=== PATIENT | female | born 1950 | race Caucasian/White ===

== ENCOUNTER 2024-03-02 18:23 | Inpatient (IN) | payer MEDICARE, MEDICAID ==
[~2024-03-02] VITALS: Ht 157.5 cm; Wt 128.4 kg
[~2024-03-02 18:23] MED LIST: AMIO100T4 MT; APIX5TAB MT; ASPI-1497 MT; ATOR40TA70 MT; CHOLECALCIFEROL PO; DOCU-150 MT; FERR325T6 MT; FURO40TA5 MT; GABA-529 MT; HYDR-4001 MT; HYDR10TA34 MT; LACT10SO6 MT; LORA10CA MT; MELA5TAB19 PO; METH4TAB95 MT; NITR0.4T49 SL; OMEG-119 MT; PROT40 MT
[2024-03-02] MEDS ORDERED: NARCAN (18:30)
[2024-03-02 20:22] LABS: BASOPHILS % 0.8 % (0.0-2.0); EOSINOPHILS % 0.4 % (0.0-5.0); HEMATOCRIT. 40.1 % (36.0-48.0); HEMOGLOBIN. 12.8 g/dL (12.0-16.0); LYMPHOCYTES % 26.4 % (20.0-50.0); MEAN CORPUSCULAR HEMOGLOBIN 29.9 pg (28.0-32.0); MEAN CORPUSCULAR HGB CONC 31.8 g/dL (31.0-37.0); MEAN CORPUSCULAR VOLUME 93.9 fL (81.0-99.0); MEAN PLATELET VOLUME 7.8 fl (7.4-10.4); MONOCYTES % 8.1 % (2.0-8.0); NEUTROPHILS % 64.3 % (40.0-76.0); PLATELET 259 x1000/uL (130-400); RED BLOOD CELL COUNT 4.27 mill/uL (4.2-5.4); RED CELL DISTRIBUTION WIDTH 16.8 % (11.6-14.6); WHITE BLOOD COUNT 8.9 x1000/uL (4.5-11.0)
[2024-03-02 20:29] LABS: CHLORIDE 100 mEq/L (98-107); POTASSIUM 4.5 mEq/L (3.5-5.1); SODIUM 137 mEq/L (136-145)
[2024-03-02 20:30] LABS: CALCIUM 9.4 mg/dL (8.7-10.4); CARBON DIOXIDE 35 mEq/L (21-32)
[2024-03-02 20:35] LABS: CREATININE 0.8 mg/dL (0.6-1.0); GLUCOSE 110 mg/dL (70-105); TROPONIN I HIGH SENSITIVITY 6 ng/L (3.0-34); UREA NITROGEN BLOOD 13 mg/dL (9-23)
[2024-03-02 20:37] LABS: ALANINE AMINOTRANSFERASE 12 IU/L (10-49); ALBUMIN 4.3 g/dL (3.2-4.8); ASPARTATE AMINOTRANSFERASE 22 IU/L (<34); BILIRUBIN TOTAL 0.3 mg/dL (0.1-1.0); PROTEIN TOTAL 7.3 g/dL (6.0-8.3)
[2024-03-02 20:40] LABS: BILIRUBIN DIRECT < 0.1 mg/dL (<=3.0)
[2024-03-02 23:35] LABS: CLARITY URINE CLEAR (CLEAR); COLOR URINE YELLOW (YELLOW); GLUCOSE URINE NEGATIVE (NEGATIVE); KETONES URINE NEGATIVE (NEGATIVE); LEUKOCYTE ESTERASE URINE NEGATIVE (NEGATIVE); NITRITE URINE NEGATIVE (NEGATIVE); OCCULT BLOOD URINE 3+ (NEGATIVE); PROTEIN URINE TRACE (NEGATIVE); SPECIFIC GRAVITY URINE 1.018 (1.005-1.030); UROBILINOGEN URINE 0.2 E.U./dL (0.2-1.0)
[2024-03-02 23:53] LABS: PROTHROMBIN TIME 11.6 sec (9.6-11.0)
[2024-03-03 00:19] VITALS: PULSE 80; RESP 20; O2SAT 100
[2024-03-03] MEDS: ALBUTEROL (0.5%) 2.5MG/0.5ML NEB HHN ONE (00:19)
[2024-03-03] MEDS: IPRATROPIUM BROMIDE (0.02%) 0.5MG/2.5ML NEB HHN ONE (00:19)
[2024-03-03 00:57] LABS: WBC URINE NONE SEEN /hpf (0-2)
[2024-03-03 00:58] LABS: BACTERIA URINE TRACE; RBC URINE TNTC /hpf (0-2); SQUAMOUS EPITHELIAL CELL URINE 1+ /lpf (RARE/1+)
[2024-03-03 16:00] VITALS: BP 100/43; PULSE 72; TEMP 36.50292; O2SAT 95
[2024-03-03] MEDS ORDERED: ACETAMINOPHEN 325MG TABLET PO PRN (16:15)
[2024-03-03] MEDS ORDERED: ONDANSETRON HCL 4MG/2ML INJ IV PRN (16:15)
[2024-03-03] MEDS ORDERED: DOCUSATE SODIUM 100MG CAPSULE PO PRN (16:15)
[2024-03-03] MEDS ORDERED: IPRATROPIUM/ALBUTEROL 0.5-3(2.5)MG/3ML NEB HHN PRN (16:15)
[2024-03-03] MEDS: ACETAMINOPHEN 325MG TABLET PO PRN (17:00)
[2024-03-03 17:10] VITALS: BP 100/43; PULSE 72; RESP 18; TEMP 26.6324
[2024-03-03] MEDS ORDERED: HYDR-4001 PO (17:51)
[2024-03-03 18:48] LABS: BG BASE EXCESS 5.6 mmol/L (-2.0-3.0); BG CARBOXYHEMOGLOBIN 0.4 % (0.5-1.5); BG DEOXYHEMOGLOBIN 1.5 % (0.0-5.0); BG FRACTION INSPIRED OXYGEN 40; BG HCO3 ACT 32.9 mmol/L (21.0-28.0); BG METHEMOGLOBIN 0.3 % (0.5-1.5); BG OXYGEN SATURATION 98.5 % (94.0-98.0); BG OXYHEMOGLOBIN 97.8 % (94.0-98.0); BG PCO2 61.8 mmHg (32.0-45.0); BG PH 7.344 (7.350-7.450); BG SAMPLE SITE RIGHT RADIAL; BG TOTAL HEMOGLOBIN 11.6 g/dL (12.0-16.0); BG VENT MODE NASAL CANNULA
[2024-03-03 19:29] LABS: *AMPHETAMINES SCREEN URINE NEGATIVE (NEGATIVE); *BARBITURATES SCREEN URINE NEGATIVE (NEGATIVE); *BENZODIAZEPINES SCREEN URINE NEGATIVE (NEGATIVE); *COCAINE SCREEN URINE NEGATIVE (NEGATIVE); CANNABINOID URINE SCREEN NEGATIVE (NEGATIVE); ECSTASY MDMA SCREEN URINE NEGATIVE (NEGATIVE); METHADONE URINE SCREEN NEGATIVE (NEGATIVE); OPIATES URINE SCREEN PRESUMPTIVE POSITIVE (NEGATIVE); PHENCYCLIDINE URINE SCREEN NEGATIVE (NEGATIVE)
[2024-03-03 20:00] VITALS: BP 97/61; PULSE 85; TEMP 37.2252; O2SAT 98
[2024-03-04] VITALS (14 sets, daily range): BP systolic 92–206; BP diastolic 50–174; PULSE 54–75; RESP 10–19; TEMP 36.44736–36.89184; O2SAT 92–100
[2024-03-04] MEDS: HYDROCODONE/ACETAMINOPHEN 5/325MG TABLET PO PRN (03:28)
[2024-03-04] MEDS: HYDROXYZINE 10MG TABLET PO PRN (03:28)
[2024-03-04 03:53] LABS: BG BASE EXCESS 10.1 mmol/L (-2.0-3.0); BG CARBOXYHEMOGLOBIN 0.7 % (0.5-1.5); BG FRACTION INSPIRED OXYGEN 40; BG HCO3 ACT 37.5 mmol/L (21.0-28.0); BG OXYHEMOGLOBIN 97.3 % (94.0-98.0); BG PH 7.372 (7.350-7.450); BG PO2 111.8 mmHg (83.0-108.0); BG SAMPLE SITE LEFT RADIAL; BG TOTAL HEMOGLOBIN 11.2 g/dL (12.0-16.0); BG VENT MODE NASAL CANNULA
[2024-03-04 06:33] LABS: BASOPHILS % 0.5 % (0.0-2.0); EOSINOPHILS % 0.7 % (0.0-5.0); HEMATOCRIT. 33.2 % (36.0-48.0); HEMOGLOBIN. 10.4 g/dL (12.0-16.0); LYMPHOCYTES % 20.6 % (20.0-50.0); MEAN CORPUSCULAR HEMOGLOBIN 29.5 pg (28.0-32.0); MEAN CORPUSCULAR HGB CONC 31.4 g/dL (31.0-37.0); MEAN CORPUSCULAR VOLUME 94.1 fL (81.0-99.0); MONOCYTES % 6.9 % (2.0-8.0); NEUTROPHILS % 71.3 % (40.0-76.0); PLATELET 236 x1000/uL (130-400); RED BLOOD CELL COUNT 3.53 mill/uL (4.2-5.4); RED CELL DISTRIBUTION WIDTH 16.4 % (11.6-14.6); WHITE BLOOD COUNT 6.9 x1000/uL (4.5-11.0)
[2024-03-04 06:47] LABS: CARBON DIOXIDE 32 mEq/L (21-32); CHLORIDE 101 mEq/L (98-107); SODIUM 139 mEq/L (136-145)
[2024-03-04 06:49] LABS: CALCIUM 9.1 mg/dL (8.7-10.4)
[2024-03-04 06:53] LABS: CREATININE 0.7 mg/dL (0.6-1.0); GLUCOSE 118 mg/dL (70-105); UREA NITROGEN BLOOD 13 mg/dL (9-23)
[2024-03-04] MEDS: DEXAMETHASONE 4MG/ML 1ML VIAL IV NR (07:06)
[2024-03-04] MEDS: LEVETIRACETAM 500MG TABLET PO SCH (08:32)
[2024-03-04] MEDS ORDERED: CEFTRIAXONE 500 MG in DEXTROSE 5% WATER 50 ML IV SCH (16:30)
[2024-03-04] MEDS: CLOTRIMAZOLE 1% VAGINAL CREAM 45GM VG SCH (18:00)
[2024-03-04] MEDS: CEFEPIME 2GM/100ML 100 ML IV SCH (18:00)
[2024-03-04] MEDS: AZITHROMYCIN 500MG/250ML 250 ML IV SCH (18:01)
[2024-03-04] MEDS: CLONIDINE 0.1MG TABLET PO PRN (22:04)
[2024-03-05] VITALS (11 sets, daily range): BP systolic 94–167; BP diastolic 49–134; PULSE 47–73; RESP 11–22; TEMP 36.28068–36.72516; O2SAT 91–100
[2024-03-05] MEDS: BUDESONIDE 0.5MG/2ML NEB HHN SCH (00:01)
[2024-03-05 06:57] LABS: BASOPHILS % 0.8 % (0.0-2.0); HEMATOCRIT. 33.5 % (36.0-48.0); HEMOGLOBIN. 10.5 g/dL (12.0-16.0); LYMPHOCYTES % 12.1 % (20.0-50.0); MEAN CORPUSCULAR HEMOGLOBIN 29.1 pg (28.0-32.0); MEAN CORPUSCULAR HGB CONC 31.5 g/dL (31.0-37.0); MEAN CORPUSCULAR VOLUME 92.5 fL (81.0-99.0); NEUTROPHILS % 84.1 % (40.0-76.0); RED BLOOD CELL COUNT 3.62 mill/uL (4.2-5.4); RED CELL DISTRIBUTION WIDTH 16.3 % (11.6-14.6)
[2024-03-05 06:59] LABS: CARBON DIOXIDE 31 mEq/L (21-32); CHLORIDE 102 mEq/L (98-107); POTASSIUM 4.8 mEq/L (3.5-5.1); SODIUM 137 mEq/L (136-145)
[2024-03-05 07:03] LABS: DIFFERENTIAL COMMENT 1
[2024-03-05 07:05] LABS: CREATININE 0.7 mg/dL (0.6-1.0); GLUCOSE 145 mg/dL (70-105); UREA NITROGEN BLOOD 15 mg/dL (9-23)
[2024-03-05 12:04] LABS: PLATELET 193 x1000/uL (130-400)
[2024-03-05 13:40] LABS: BG BASE EXCESS 8.7 mmol/L (-2.0-3.0); BG CARBOXYHEMOGLOBIN 0.3 % (0.5-1.5); BG DEOXYHEMOGLOBIN 7.4 % (0.0-5.0); BG FRACTION INSPIRED OXYGEN 21; BG HCO3 ACT 35.2 mmol/L (21.0-28.0); BG METHEMOGLOBIN 0.3 % (0.5-1.5); BG OXYGEN SATURATION 92.6 % (94.0-98.0); BG PCO2 58.1 mmHg (32.0-45.0); BG PO2 62.8 mmHg (83.0-108.0); BG SAMPLE SITE RIGHT RADIAL; BG TOTAL HEMOGLOBIN 11.3 g/dL (12.0-16.0); BG VENT MODE ROOM AIR
[2024-03-05] MEDS ORDERED: PIPERACILLIN/TAZO 3.375G/50ML 50 ML IV SCH (14:00)
[2024-03-05] MEDS ORDERED: VANCOMYCIN 1,750 MG in DEXT 5% WATER 500 ML IV NR (15:00)
[2024-03-05] MEDS: METRONIDAZOLE 500 MG PREMIX 100 ML IV SCH (15:15)
[2024-03-05] MEDS: CEFEPIME 2GM/100ML 100 ML IV SCH (15:16)
[2024-03-06] VITALS (14 sets, daily range): BP systolic 88–142; BP diastolic 34–108; PULSE 59–83; RESP 12–20; TEMP 36.114–37.05852; O2SAT 91–100
[2024-03-06] MEDS ORDERED: VANCOMYCIN 1GM/200ML PMX (BAXTER) IV SCH (14:00)
[2024-03-07] VITALS (12 sets, daily range): BP systolic 92–150; BP diastolic 50–115; PULSE 67–101; RESP 13–24; TEMP 36.33624–37.2252; O2SAT 95–100
[2024-03-07] MEDS: ASCORBIC ACID 250 MG TABLET PO SCH (09:11)
[2024-03-07] MEDS: ZINC SULFATE 220 MG ( 50 ) CAPSULE PO SCH (09:11)
[2024-03-07] MEDS: MORPHINE SULFATE 2 MG/ML INJ (NOT FOR IM USE) IV NR (12:55)
[2024-03-07] MEDS: DIPHENHYDRAMINE 50MG/ML VIAL IV NR (13:21)
[2024-03-07] MEDS ORDERED: NALOXONE HCL 0.4MG/ML VIAL IV PRN (13:30)
[2024-03-07] MEDS: GABAPENTIN 300MG CAPSULE PO SCH (13:30)
[2024-03-08] VITALS (13 sets, daily range): BP systolic 92–151; BP diastolic 40–139; PULSE 76–94; RESP 12–18; TEMP 36.55848–36.9474; O2SAT 96–100
[2024-03-08 11:28] LABS: HEMOGLOBIN 9.3 g/dL (12.0-16.0); MEAN CORPUSCULAR HEMOGLOBIN 29.3 pg (28.0-32.0); MEAN CORPUSCULAR VOLUME 94.6 fL (81.0-99.0); PLATELET 260 x1000/uL (130-400); RED BLOOD CELL COUNT 3.17 mill/uL (4.2-5.4)
[2024-03-08 11:42] LABS: CALCIUM 8.8 mg/dL (8.7-10.4); CARBON DIOXIDE 32 mEq/L (21-32); CHLORIDE 105 mEq/L (98-107); POTASSIUM 4.7 mEq/L (3.5-5.1); SODIUM 138 mEq/L (136-145)
[2024-03-08 11:47] LABS: CREATININE 0.7 mg/dL (0.6-1.0); GLUCOSE 186 mg/dL (70-105); UREA NITROGEN BLOOD 23 mg/dL (9-23)
[2024-03-08] MEDS ORDERED: KEPP500 PO (12:54)
[2024-03-09] MEDS ORDERED: METRONIDAZOLE 500MG TABLET PO SCH (06:00)
== END 2024-03-08 23:46 | DRG 100 ==
LOC: ER 18:23 → MICUSO 23:50 → 5WST 03-03 09:56 → 8WST 03-03 16:20 → 5EST 03-04 00:30
PROVIDERS: ADMIT Family Medicine Adult Medicine; ATTEND Family Medicine Adult Medicine
PROC: 5A09357 Assistance with Respiratory Ventilation, Less than 24 Consecutive Hours, Continuous Positive Airway Pressure (ICD-10-PCS; principal; 2024-03-04)
PROC: 5A09357 Assistance with Respiratory Ventilation, Less than 24 Consecutive Hours, Continuous Positive Airway Pressure (ICD-10-PCS; 2024-03-05)
DX: G40.909 Epilepsy, unspecified, not intractable, without status epilepticus (principal); A41.9 Sepsis, unspecified organism; J96.02 Acute respiratory failure with hypercapnia; J96.01 Acute respiratory failure with hypoxia; J69.0 Pneumonitis due to inhalation of food and vomit; J44.0 Chronic obstructive pulmonary disease with (acute) lower respiratory infection; J44.1 Chronic obstructive pulmonary disease with (acute) exacerbation; E66.2 Morbid (severe) obesity with alveolar hypoventilation; D32.0 Benign neoplasm of cerebral meninges; Z68.38 Body mass index [BMI] 38.0-38.9, adult; B37.31 Acute candidiasis of vulva and vagina; I11.0 Hypertensive heart disease with heart failure; R90.82 White matter disease, unspecified; I50.9 Heart failure, unspecified; E11.9 Type 2 diabetes mellitus without complications; I48.91 Unspecified atrial fibrillation; K21.9 Gastro-esophageal reflux disease without esophagitis; Z88.8 Allergy status to other drugs, medicaments and biological substances; Z86.73 Personal history of transient ischemic attack (TIA), and cerebral infarction without residual deficits; Z88.0 Allergy status to penicillin; Z88.2 Allergy status to sulfonamides; Z88.6 Allergy status to analgesic agent; Z74.01 Bed confinement status
CPT/HCPCS: 36415; 36600; 71045; 80048; 80076; 80305; 81003; 82375; 82805; 83880; 84484; 85025; 85027; 93005; 94640; 94660; 99285; A6261; J0456; J0692; J1100; J1200; J2270; J3370; J3490; J7060; J7626